=== PATIENT | female | born 1960 | race African-American/Black ===

== ENCOUNTER 2018-05-05 13:49 | Emergency (ER) | payer BC, OTHER ==
--- NOTE | 2018-05-05 13:59 | ER Document Report ---
ED General - General Stated Complaint: POSSIBLE NOSE BLEED Time Seen by Provider: 05/05/18 13:55 Mode of Arrival: Medic Information source: Patient Notes: 57-year-old female who is not on any blood thinners presents with complaints of bleeding that started 3 hours ago. Patient is on meloxicam no other blood thinners denies any trauma. Patient given TXA by EMS TRAVEL OUTSIDE OF THE [place] IN LAST 30 DAYS: No - HPI Onset: Just prior to arrival Onset/Duration: Sudden Quality of pain: Other Severity: Severe Pain Level: Denies Associated symptoms: Other Exacerbated by: Denies Relieved by: Denies Similar symptoms previously: No Recently seen / treated by doctor: No - Related Data Allergies/Adverse Reactions: No Known Allergies Allergy (Verified 02/27/16 15:02) Past Medical History - Social History Smoking Status: Never Smoker Cigarette use (# per day): No Chew tobacco use (# tins/day): No Smoking Education Provided: No Family History: Reviewed & Not Pertinent - Past Medical History Cardiac Medical History: Reports: Hx Hypertension Past Surgical History: Reports: Hx Section Review of Systems - Review of Systems Notes: REVIEW OF SYSTEMS: CONSTITUTIONAL : Denies fever, chills, or sweats. Denies recent illness. EENT: Admits to nosebleed CARDIOVASCULAR: Denies chest pain. Denies palpitations or racing or irregular heart beat. Denies ankle edema. RESPIRATORY: Denies cough, cold, or chest congestion. Denies shortness of breath, difficulty breathing, or wheezing. GASTROINTESTINAL: Denies abdominal pain or distention. Denies nausea, vomiting , or diarrhea. Denies blood in vomitus, stools, or per rectum. Denies black, tarry stools. Denies constipation. GENITOURINARY: Denies difficulty urinating, painful urination, burning, frequency, blood in urine, or discharge. FEMALE GENITOURINARY: Denies vaginal bleeding, heavy or abnormal periods, irregular periods. Denies vaginal discharge or odor. MUSCULOSKELETAL: Denies back or neck pain or stiffness. Denies joint pain or swelling. SKIN: Denies rash, lesions or sores. HEMATOLOGIC : Denies easy bruising or bleeding. LYMPHATIC: Denies swollen, enlarged glands. NEUROLOGICAL: Denies confusion or altered mental status. Denies passing out or loss of consciousness. Denies dizziness or lightheadedness. Denies headache. Denies weakness or paralysis or loss of use of either side. Denies problems with gait or speech. Denies sensory loss, numbness, or tingling. Denies seizures. PSYCHIATRIC: Denies anxiety or stress. Denies depression, suicidal ideation, or homicidal ideation. ALL OTHER SYSTEMS REVIEWED AND NEGATIVE. PHYSICAL EXAMINATION: GENERAL: Well-appearing, well-nourished and in no acute distress. HEAD: Atraumatic, normocephalic. EYES: Pupils equal round and reactive to light, extraocular movements intact, conjunctiva are normal. ENT: Bleeding noted through the right nostril dry blood in the left NECK: Normal range of motion, supple without lymphadenopathy LUNGS: Breath sounds clear to auscultation bilaterally and equal. No wheezes rales or rhonchi. HEART: Regular rate and rhythm without murmurs ABDOMEN: Soft, nontender, nondistended abdomen. No guarding, no rebound. No masses appreciated. Female : deferred Musculoskeletal: Normal range of motion, no pitting or edema. No cyanosis. NEUROLOGICAL: Cranial nerves grossly intact. Normal speech, normal gait. Normal sensory, motor exams PSYCH: Normal mood, normal affect. SKIN: Warm, Dry, normal turgor, no rashes or lesions noted. Dictation was performed using [employer] voice recognition software Physical Exam - Vital signs Vitals: Temp Pulse Resp BP Pulse Ox 98.4 F 100 16 176/87 H 100 05/05/18 14:05/05/18 14:05/05/18 14:05/05/18 14:05/05/18 14:01 Course - Re-evaluation Re-evalutation: 05/05/18 14:02 Patient has history of hypertension is not taking a blood pressure medication 05/05/18 15:14 Rhino Rocket placed with no complications, patient was watched in the emergency department for another hour with no eating, will discharge home with follow-up with ENT antibiotics and close follow-up - Vital Signs Vital signs: Temp Pulse Resp BP Pulse Ox 98.4 F 100 16 176/87 H 100 05/05/18 14:05/05/18 14:05/05/18 14:05/05/18 14:05/05/18 14:01 Discharge - Discharge Clinical Impression: Bleeding nose Condition: Stable Disposition: HOME, SELF-CARE Instructions: Nosebleed Instructions ([facility]) Prescriptions: Cephalexin Monohydrate [Keflex 500 mg Capsule] 500 mg PO Q6H 5 Days capsule Referrals: ANDRÉS STEINBERG DO [ASSOCIATE] - Follow up in 3-5 days
[2018-05-05] MEDS ORDERED: OXYMETAZOLINE HCL 0.05% NASAL SPRAY 15 ML BOTTLE NASL ONE (14:22)
[2018-05-05 15:23] VITALS: BP 167/79
== END 2018-05-05 15:23 | disposition home or self-care (01) ==
LOC: ER 13:49
DX: R04.0 Epistaxis (principal); I10 Essential (primary) hypertension
CPT/HCPCS: 99283; 30901; J3490

== ENCOUNTER 2018-05-08 07:03 | Emergency (ER) | payer SELFPAY ==
[2018-05-08 07:09] VITALS: BP 164/77
--- NOTE | 2018-05-08 08:26 | ER Document Report ---
ED General - General Chief Complaint: Other Stated Complaint: RECHECK NOSE BLEED Time Seen by Provider: 05/08/18 07:48 Mode of Arrival: Ambulatory Information source: Patient Notes: Patient is a 57-year-old female who presents to the ER today for nose packing removal from a nosebleed that she had a Rhino Rocket placed on the of this month. This was placed here in the emergency department due to nosebleed. Patient states that she has had no further bleeding. She has not followed up with ear nose and throat. She states she was told to come back to have it removed. She is not on blood thinners. TRAVEL OUTSIDE OF THE [place] IN LAST 30 DAYS: No - Related Data Allergies/Adverse Reactions: No Known Allergies Allergy (Verified 02/27/16 15:02) Past Medical History - General Information source: Patient - Social History Smoking Status: Unknown if Ever Smoked Family History: Reviewed & Not Pertinent Patient has suicidal ideation: No Patient has homicidal ideation: No - Past Medical History Cardiac Medical History: Reports: Hx Hypertension Renal/ Medical History: Denies: Hx Peritoneal Dialysis Past Surgical History: Reports: Hx Section Review of Systems - Review of Systems Constitutional: No symptoms reported EENT: See HPI Cardiovascular: No symptoms reported Respiratory: No symptoms reported Gastrointestinal: No symptoms reported Genitourinary: No symptoms reported Female Genitourinary: No symptoms reported Musculoskeletal: No symptoms reported Skin: No symptoms reported Hematologic/Lymphatic: No symptoms reported Neurological/Psychological: No symptoms reported Physical Exam - Vital signs Vitals: Temp Pulse Resp BP Pulse Ox 97.7 F 81 18 164/77 H 97 05/08/18 07:08 05/08/18 07:08 05/08/18 07:08 05/08/18 07:08 05/08/18 07:08 - Notes Notes: PHYSICAL EXAMINATION: GENERAL: Well-appearing and in no acute distress. HEAD: Atraumatic, normocephalic. EYES: Pupils equal round and reactive to light, extraocular movements intact, sclera anicteric, conjunctiva are normal. ENT: ear canals without erythema or foreign body, TMs pearly brennan with good bony landmarks, right near with Rhino Rocket in place, no bleeding, oropharynx clear without exudates. Moist mucous membranes. NECK: Normal range of motion, supple without lymphadenopathy LUNGS: CTAB and equal. No wheezes rales or rhonchi. HEART: Regular rate and rhythm without murmurs EXTREMITIES: Normal range of motion, no pitting edema. No cyanosis. NEUROLOGICAL: Cranial nerves grossly intact. Normal sensory/motor exams. PSYCH: Normal mood, normal affect. SKIN: Warm, Dry, normal turgor, no rashes or lesions noted Course - Re-evaluation Re-evalutation: 05/09/18 08:40 Rhino Rocket was removed successfully, patient was watched for approximately an hour afterwards and had no active bleeding. Bacitracin was applied to the naris there was some dried skin and crust. - Vital Signs Vital signs: Temp Pulse Resp BP Pulse Ox 97.7 F 81 18 164/77 H 97 05/08/18 07:08 05/08/18 07:08 05/08/18 07:08 05/08/18 07:08 05/08/18 07:08 Discharge - Discharge Clinical Impression: Encounter for removal of nasal packing Condition: Stable Disposition: HOME, SELF-CARE Additional Instructions: Return immediately for any new or worsening symptoms. Follow up with primary care provider, call tomorrow to make followup appointment.
== END 2018-05-08 08:42 | disposition home or self-care (01) ==
LOC: ER 07:03
DX: Z48.00 Encounter for change or removal of nonsurgical wound dressing (principal); R23.8 Other skin changes; I10 Essential (primary) hypertension
CPT/HCPCS: 99283

== ENCOUNTER 2018-09-16 16:46 | Emergency (ER) | payer SELFPAY ==
[2018-09-16] MEDS ORDERED: DEXAMETHASONE 4 MG TABLET PO ONE (18:47)
[2018-09-16] MEDS ORDERED: KETOROLAC TROMETHAMINE 60 MG/2 ML SDV IM ONE (18:47)
--- NOTE | 2018-09-16 18:49 | ER Document Report ---
ED Neck/Back Problem - General Chief Complaint: Low Back Pain Stated Complaint: LOWER BACK PAIN Time Seen by Provider: 09/16/18 18:21 Mode of Arrival: Ambulatory Notes: 58-year-old female presented to ED for complaint of pain in the back started on Saturday became worse on Saturday and she was told at work that she need to get checked out before she can go back to work. She also has a rash to the right foot it is been there for a while but is gotten worse and is become a little painful when she is working. She states she works at a [employer] and the pain has been bad at work. Vision is alert and oriented respirations regular and unlabored speaking in full sentences walks with even steady gait. TRAVEL OUTSIDE OF THE [place] IN LAST 30 DAYS: No - HPI Patient complains to provider of: Pain, Lower back. No: Injury Onset: Last - Onset: Chronic - With an exacerbation Timing: Still present Quality of pain: Achy Severity: Moderate Pain Level: 2 Recent injury: No Associated symptoms: Like prior neck/back pain, Radiation to leg, Lower back pain, Other - Also has a rash to the right foot the back and the arm. denies: Fever, Incontinence, Motor loss, Numbness/tingling, Radiation to arm, Radiation to chest, Sensory loss, Sweaty, Unable to urinate Exacerbated by: Movement of trunk, Sitting position Relieved by: Nothing Similar symptoms previously: Yes - Related Data Allergies/Adverse Reactions: No Known Allergies Allergy (Verified 02/27/16 15:02) Past Medical History - General Information source: Patient - Social History Smoking Status: Never Smoker Cigarette use (# per day): No Chew tobacco use (# tins/day): No Smoking Education Provided: No Frequency of alcohol use: Social Drug Abuse: Marijuana Occupation: [employer] Lives with: Spouse/Significant other Family History: Reviewed & Not Pertinent Patient has suicidal ideation: No Patient has homicidal ideation: No - Past Medical History Cardiac Medical History: Reports: Hx Hypertension Pulmonary Medical History: Reports: None EENT Medical History: Reports: None Neurological Medical History: Reports: None Endocrine Medical History: Reports: None Renal/ Medical History: Reports: None Malignancy Medical History: Reports: None GI Medical History: Reports: None Musculoskeletal Medical History: Reports Hx Arthritis Skin Medical History: Reports None Psychiatric Medical History: Reports: None Traumatic Medical History: Reports: None Infectious Medical History: Reports: None Past Surgical History: Reports: Hx Section - Immunizations Immunizations up to date: Yes Review of Systems - Review of Systems Notes: REVIEW OF SYSTEMS: CONSTITUTIONAL : Denies fever, chills, or sweats. Denies recent illness. EENT: Denies eye, ear, throat, or mouth pain or symptoms. Denies nasal or sinus congestion or discharge. Denies throat, tongue, or mouth swelling or difficulty swallowing. CARDIOVASCULAR: Denies chest pain. Denies palpitations or racing or irregular heart beat. Denies ankle edema. RESPIRATORY: Denies cough, cold, or chest congestion. Denies shortness of breath, difficulty breathing, or wheezing. GASTROINTESTINAL: Denies abdominal pain or distention. Denies nausea, vomiting , or diarrhea. Denies blood in vomitus, stools, or per rectum. Denies black, tarry stools. Denies constipation. GENITOURINARY: Denies difficulty urinating, painful urination, burning, frequency, blood in urine, or discharge. FEMALE GENITOURINARY: Denies vaginal bleeding, heavy or abnormal periods, irregular periods. Denies vaginal discharge or odor. MUSCULOSKELETAL: Complains of back pain to the lower back radiating across the right buttocks and down the right thigh. She states she has had this in the past just seems worse today. She states that work told her she had to get checked out before she could come back to work. Patient denies any loss of control of bowel or bladder, saddle anesthesia, loss control of the lower extremities or any decreased sensation to the lower extremities. Denies joint pain or swelling. SKIN: Rash to the right foot ankle, she also has a mild rash to the arms HEMATOLOGIC : Denies easy bruising or bleeding. LYMPHATIC: Denies swollen, enlarged glands. NEUROLOGICAL: Denies confusion or altered mental status. Denies passing out or loss of consciousness. Denies dizziness or lightheadedness. Denies headache. Denies weakness or paralysis or loss of use of either side. Denies problems with gait or speech. Denies sensory loss, numbness, or tingling. Denies seizures. PHYSICAL EXAMINATION: GENERAL: Well-appearing, well-nourished and in no acute distress. HEAD: Atraumatic, normocephalic. EYES: Pupils equal round and reactive to light, extraocular movements intact, conjunctiva are normal. ENT: Nares patent, oropharynx clear without exudates. Moist mucous membranes. NECK: Normal range of motion, supple without lymphadenopathy LUNGS: Breath sounds clear to auscultation bilaterally and equal. No wheezes rales or rhonchi. HEART: Regular rate and rhythm without murmurs ABDOMEN: Soft, nontender, nondistended abdomen. No guarding, no rebound. No masses appreciated. Female : deferred Musculoskeletal: Tenderness to lower back bilaterally radiates across the right buttocks and down the right leg normal range of motion, no pitting or edema. No cyanosis. NEUROLOGICAL: Cranial nerves grossly intact. Normal speech, normal gait. Normal sensory, motor exams PSYCH: Normal mood, normal affect. SKIN: Warm, Dry, normal turgor, psoriasis to the right foot left and right arm worse on the right foot PSYCHIATRIC: Denies anxiety or stress. Denies depression, suicidal ideation, or homicidal ideation. ALL OTHER SYSTEMS REVIEWED AND NEGATIVE. Dictation was performed using [employer] voice recognition software Physical Exam - Vital signs Vitals: Temp Pulse Resp BP Pulse Ox 98.5 F 81 18 171/82 H 93 09/16/18 16:52 09/16/18 16:52 09/16/18 16:52 09/16/18 16:52 09/16/18 16:52 Course - Re-evaluation Re-evalutation: 09/17/18 02:42 After performing a Medical Screening Examination, I estimate there is LOW risk for EXPANDING OR RUPTURED ABDOMINAL AORTIC ANEURYSM, CAUDA EQUINA SYNDROME, EPIDURAL MASS LESION, or HERNIATED DISK CAUSING SEVERE SPINAL STENOSIS, thus I consider the discharge disposition reasonable. I have reevaluated this patient multiple times and no significant life threatening changes are noted. The patient and I have discussed the diagnosis and risks, and we agree with discharging home and close follow-up. We also discussed returning to the Emergency Department immediately if new or worsening symptoms occur with the understanding that symptoms and presentations can change. We have discussed the symptoms which are most concerning (e.g., saddle anesthesia, urinary or bowel incontinence or retention, changing or worsening pain) that necessitate immediate return. - Vital Signs Vital signs: Temp Pulse Resp BP Pulse Ox 97.8 F 79 16 162/81 H 98 09/16/18 20:04 09/16/18 20:04 09/16/18 20:04 09/16/18 20:04 09/16/18 20:04 - Diagnostic Test Radiology reviewed: Image reviewed, Reports reviewed Discharge - Discharge Clinical Impression: Psoriasis Low back pain Qualifiers: Chronicity: chronic Back pain laterality: unspecified Sciatica presence: with sciatica Sciatica laterality: sciatica of right side Qualified Code(s): M54.41 - Lumbago with sciatica, right side; G89.29 - Other chronic pain; G89.29 - Other chronic pain Condition: Stable Disposition: HOME, SELF-CARE Instructions: Family Physicians / Practices Additional Instructions: LOW BACK PAIN: Three out of every four people will have an episode of disabling back pain during their lifetime. Most commonly the pain is due to straining of the muscles and ligaments in the low back. Usual treatment includes: (1) Rest on a firm surface. Avoid lying on your stomach. (2) Ice pack the painful area. After a few days, gentle heat may be used intermittently to relax the area, or ice packs can be continued. (3) Medication may be needed -- muscle relaxers and antiinflammatory medicines are commonly used. (4) As the back improves, exercises are prescribed to strengthen the back and abdominal muscles. Your doctor will advise you on the proper care for your back at each stage in your recovery. You may be better in a few days -- or healing may take several weeks. If new symptoms of a "herniated disc" (radiation of pain, numbness, or tingling down the back of the leg or weakness in the leg) occur, you should be re-examined. Further testing may be necessary. STEROID MEDICATION: You have been given a medicine of the cortisone/steroid class. This medication is used to control inflammation or allergy. It is usually only given for a short period of time, until the acute process subsides. There are usually no side effects from short-term use of cortisone-like medications. Some persons feel an increased sense of well-being and are not sleepy at bedtime. Long-term use of cortisone medications is best avoided, unless required for a severe condition. If your condition does not remit, or relapses after the course of corticosteroid medication, you should consult your physician. Toradol Injection You have been given an injection of ketorolac tromethamine (Toradol). This is an excellent, safe drug for pain control. It also has potent antiinflammatory action. You should have significant pain relief within about one hour. Toradol is not addicting and is non-sedating. It does not interfere with driving or work. Call or return if you develop itching, hives, shortness of breath, or rash. Stretching Exercises for the Back The physician has recommended that you begin stretching exercises for your back. These are often used even while the back is painful. However, you should notify the physician if the activities seem to increase your pain. PELVIC TILT: Lie flat on your back with knees bent. Tighten your stomach and buttock muscles so it flattens your lower back against the floor. Hold 10 seconds. Repeat 10 times, twice daily. KNEE RAISE: Lying on the back with knees bent, raise one knee to your chest, then the other. Hold both knees against the chest 10 seconds, then lower one knee at a time. Repeat 10 times, twice daily. PARTIAL TRUNK RAISE: Lie face down, arms at your sides. Keeping your waist on the floor, use your arms raise your chest up. Support yourself on your elbows for 30 seconds. Repeat twice daily, increasing the time to two minutes as you recover. MUSCLE RELAXERS: Muscle relaxing medications are usually prescribed for acute muscle spasm or injury to the neck and back. They are often combined with antiinflammatory pain medication for increased relief. You may stop the muscle relaxer when the pain and stiffness have improved. Start the medication again if spasms recur. Muscle relaxers may cause drowsiness, especially with the first dose. Do not operate machinery or drive while under the effects of the medication. Most muscle relaxers last up to 24 hours. Do not combine the medication with alcohol. ICE PACKS: Apply ice packs frequently against the painful area. Many different schedules are recommended, such as "20 minutes on, 20 minutes off" or "one hour ice, two hours rest." If you need to work, you may need to go longer between ice treatments. You should plan to have the area ice packed AT LEAST one fourth of the time. The ice should be applied over the wrap, tape, or splint, or over a layer of cloth -- not directly against the skin. Some ice bags have a built-in cloth and can be put directly on the skin. WARM PACKS: After approximately two days, apply gentle heat (such as a heating pad or hot water bottle) for about 20 to 30 minutes about every two hours -- at least four times daily. Warmth and elevation will help you make a more rapid recovery , and will ease the pain considerably. Do not use HOT heat, and never apply heat for longer than 30 minutes. The continuous heat can invisibly damage skin and muscles -- even when no burn is seen on the surface. Damaged muscles can make you MORE sore. Is a instructed to the acetaminophen 8-hour arthritis formula taken with ibuprofen in the morning to help your low back pain. Can also use Aspercreme lidocaine cream to the area. Please follow-up with her primary doctor and get a back specialist referral for your back pain. X-ray did show chronic changes to your back but no acute fractures or injuries. He also had some calcified atherosclerotic plaques in your abdominal aorta will need to follow-up with your primary doctor for this. This is a chronic problem. FOLLOW-UP CARE: If you have been referred to a physician for follow-up care, call the physician s office for an appointment as you were instructed or within the next two days. If you experience worsening or a significant change in your symptoms, notify the physician immediately or return to the Emergency Department at any time for re-evaluation. Prescriptions: Cyclobenzaprine HCl [Flexeril 10 mg Tablet] 10 mg PO TIDP PRN #15 tab PRN Reason: Forms: Elevated Blood Pressure, Return to Work
--- NOTE | 2018-09-16 19:15 | RADIOLOGY REPORT (SQ) ---
EXAM DESCRIPTION: L SPINE WHOLE COMPLETED DATE/TIME: 09/16/2018 6:58 pm REASON FOR STUDY: low back pain radiates to right COMPARISON: None. NUMBER OF VIEWS: Five views including obliques. TECHNIQUE: AP, lateral, oblique, and sacral radiographic images acquired of the lumbar spine. LIMITATIONS: None. FINDINGS: MINERALIZATION: Normal. SEGMENTATION: Normal. No transitional anatomy. ALIGNMENT: Normal. VERTEBRAE: Maintained height. No fracture or worrisome bone lesion. DISCS: Multilevel disc space narrowing with osteophytes. POSTERIOR ELEMENTS: Pedicles and facets are intact. No pars defect or posterior arch defects. Facet arthropathy is present. HARDWARE: None in the spine. PARASPINAL SOFT TISSUES: Calcified atherosclerotic plaque localizes to the abdominal aorta. PELVIS: Intact as visualized. No fractures or worrisome bone lesions. SI joints intact. OTHER: No other significant finding. IMPRESSION: SPONDYLOSIS WITHOUT BONE LESION OR FRACTURE. TECHNICAL DOCUMENTATION: JOB ID: [id number] [employer]- All Rights Reserved Reading location - IP/workstation name: [email or web address]
[2018-09-16] MEDS ORDERED: METHOCARBAMOL 500 MG TABLET PO ONE (19:28)
[2018-09-16 20:05] VITALS: BP 162/81
== END 2018-09-16 20:07 | disposition home or self-care (01) ==
LOC: ER 16:46
DX: L40.9 Psoriasis, unspecified (principal); G89.29 Other chronic pain; M54.41 Lumbago with sciatica, right side; I10 Essential (primary) hypertension
CPT/HCPCS: 99283; 72110; J1885

== ENCOUNTER 2019-11-19 09:39 | Emergency (ER) | payer SELFPAY ==
[2019-11-19] MEDS ORDERED: DIPHENHYDRAMINE HCL 50 MG/ML VIAL IV ONE (10:30)
[2019-11-19] MEDS ORDERED: METHYLPREDNISOLONE INJ 125 MG/2 ML SDV IV ONE (10:30)
--- NOTE | 2019-11-19 10:30 | ER Document Report ---
ED Medical Screen (RME) - General Chief Complaint: Rash Stated Complaint: RASH Time Seen by Provider: 11/19/19 10:13 TRAVEL OUTSIDE OF THE [place] IN LAST 30 DAYS: No - HPI Notes: 11/19/19 10:54 59-year-old female to the emergency department with complaints of a rash to her face and to her back into her feet. She states that she was diagnosed with psoriasis to her feet but is gotten progressively worse over the past week. She states she started have a rash to her back and into her face over the past 3 days. 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 Of note she does not use gloves while she is working but there is no rash on her hands. Denies any fevers or chills. She states the rash itches and also stings. I performed a brief medical screening exam on the patient. I determined that she will need further evaluation and management by main side provider. I did consult with Dr. christianson and he came and looked at the rash as well and agreed with the plan for CBC CMP, Benadryl, Solu-Medrol. - Related Data Allergies/Adverse Reactions: No Known Allergies Allergy (Verified 11/19/19 10:11) Past Medical History - Social History Chew tobacco use (# tins/day): No Frequency of alcohol use: Occasional Drug Abuse: None - Past Medical History Cardiac Medical History: Reports: Hx Hypertension Renal/ Medical History: Denies: Hx Peritoneal Dialysis Musculoskeltal Medical History: Reports Hx Arthritis Past Surgical History: Reports: Hx Section - Immunizations Immunizations up to date: Yes Physical Exam - Vital signs Vitals: Temp Pulse Resp BP Pulse Ox 98.1 F 84 16 146/69 H 96 11/19/19 09:46 11/19/19 09:46 11/19/19 09:46 11/19/19 09:46 11/19/19 09:46 Course - Vital Signs Vital signs: Temp Pulse Resp BP Pulse Ox 98.1 F 84 16 146/69 H 96 11/19/19 09:46 11/19/19 09:46 11/19/19 09:46 11/19/19 09:46 11/19/19 09:46 - Laboratory Result Diagrams: 11/19/19 10:43 11/19/19 10:43
[2019-11-19 10:53] LABS: ABSOLUTE EOSINOPHILS # (AUTO) 0.2 10^3/uL (0.0-0.6); ABSOLUTE LYMPHOCYTES (AUTO) 1.6 10^3/uL (0.5-4.7); ABSOLUTE MONOCYTES (AUTO) 0.4 10^3/uL (0.1-1.4); ABSOLUTE NEUT (AUTO) 4.2 10^3/uL (1.7-8.2); BASOPHILS % (AUTO) 0.8 % (0-2); HEMATOCRIT 28.5 % (36.0-47.0); HEMOGLOBIN 9.4 g/dL (12.0-15.5); LYMPHOCYTES % (AUTO) 24.8 % (13-45); MEAN CORPUSCULAR HEMOGLOBIN 26.8 pg (27.0-33.4); MEAN CORPUSCULAR VOLUME 81 fl (80-97); MONOCYTES % (AUTO) 6.4 % (3-13); PLATELET COUNT 133 10^3/uL (150-450); RED BLOOD COUNT 3.51 10^6/uL (3.72-5.28); RED CELL DISTRIBUTION WIDTH 22.2 % (11.5-14.0); TOTAL CELLS COUNTED % (AUTO) 100 %; WHITE BLOOD COUNT 6.4 10^3/uL (4.0-10.5)
[2019-11-19 11:10] LABS: ALBUMIN 3.9 g/dL (3.5-5.0); ALKALINE PHOSPHATASE 184 U/L (38-126); ANION GAP 11 (5-19); ASPARTATE AMINO TRANSFERASE 157 U/L (14-36); BILIRUBIN,DIRECT 0.8 mg/dL (0.0-0.4); BILIRUBIN,TOTAL 1.3 mg/dL (0.2-1.3); BLOOD UREA NITROGEN 9 mg/dL (7-20); CALCIUM 9.1 mg/dL (8.4-10.2); CARBON DIOXIDE 29 mmol/L (22-30); CHLORIDE 104 mmol/L (98-107); GLUCOSE 113 mg/dL (75-110); POTASSIUM 3.5 mmol/L (3.6-5.0); TOTAL PROTEIN 8.8 g/dL (6.3-8.2)
--- NOTE | 2019-11-19 15:54 | ER Document Report ---
ED Skin Rash/Insect Bite/Abscs - General Chief Complaint: Rash Stated Complaint: RASH Time Seen by Provider: 11/19/19 10:13 Primary Care Provider: ANGELES DUCKWORTH MD [ACTIVE STAFF] - Follow up as needed Notes: Patient is a 59-year-old female who presents emergency department with a chief complaint of rash. Patient reports she has known psoriasis to her feet. Patient reports over the past 3 days the psoriasis to bilateral feet has gotten worse. She reports pustules and worsening pain to her feet. Patient reports she is also noticed the same type of rash to her right lower extremity, right buttocks, torso and face. Patient reports that she is not hurting but that this is extremely itchy. Patient denies fever. Patient denies history of diabetes. Patient reports she does not currently take anything besides [id number] lotions for her psoriasis. Patient reports she does not have a plug making operator that she follows closely for this. TRAVEL OUTSIDE OF THE [place] IN LAST 30 DAYS: No - Related Data Allergies/Adverse Reactions: No Known Allergies Allergy (Verified 11/19/19 10:11) Past Medical History - General Information source: Patient - Social History Smoking Status: Former Smoker Chew tobacco use (# tins/day): No Frequency of alcohol use: Occasional Drug Abuse: None Lives with: Spouse/Significant other Family History: Reviewed & Not Pertinent Patient has suicidal ideation: No Patient has homicidal ideation: No - Past Medical History Cardiac Medical History: Reports: Hx Hypertension Pulmonary Medical History: Reports: None EENT Medical History: Reports: None Neurological Medical History: Reports: None Endocrine Medical History: Reports: None Renal/ Medical History: Reports: None. Denies: Hx Peritoneal Dialysis Malignancy Medical History: Reports: None GI Medical History: Reports: None Musculoskeletal Medical History: Reports Hx Arthritis Skin Medical History: Reports None Psychiatric Medical History: Reports: None Traumatic Medical History: Reports: None Infectious Medical History: Reports: None Past Surgical History: Reports: Hx Section - Immunizations Immunizations up to date: Yes Review of Systems - Review of Systems Constitutional: No symptoms reported EENT: No symptoms reported Cardiovascular: No symptoms reported Respiratory: No symptoms reported Gastrointestinal: No symptoms reported Genitourinary: No symptoms reported Female Genitourinary: No symptoms reported Musculoskeletal: No symptoms reported Skin: See HPI Hematologic/Lymphatic: No symptoms reported Neurological/Psychological: No symptoms reported Physical Exam - Vital signs Vitals: Temp Pulse Resp BP Pulse Ox 98.1 F 84 16 146/69 H 96 11/19/19 09:46 11/19/19 09:46 11/19/19 09:46 11/19/19 09:46 11/19/19 09:46 - Notes Notes: GENERAL: Well-appearing, well-nourished and in no acute distress. HEAD: Atraumatic, normocephalic. EYES: Pupils equal round and reactive to light, extraocular movements intact, sclera anicteric, conjunctiva are normal. ENT: Nares patent, oropharynx clear without exudates. Moist mucous membranes. NECK: Normal range of motion, supple without lymphadenopathy or JVD. LUNGS: Breath sounds clear to auscultation bilaterally and equal. No wheezes rales or rhonchi. HEART: Regular rate and rhythm without murmurs, rubs or gallops. ABDOMEN: Soft, nontender, normoactive bowel sounds. No guarding, no rebound. No masses appreciated. BACK: No cervical, thoracic, lumbar midline tenderness. No saddle anesthesia, normal distal neurovascular exam. GENITOURINARY: Deferred. EXTREMITIES: Normal range of motion, no pitting or edema. No clubbing or cyanosis. NEUROLOGICAL: Cranial nerves II through XII grossly intact. Normal speech, normal gait. PSYCH: Normal mood, normal affect. SKIN: Patient has widespread eruption of pustules to bilateral feet, some areas of erythematous plaques are oozing a small amount of blood pt. has scattered erythematous plaques to right lower extremity, right buttocks, torso, and face. The plaques do not interfere with eyes. Course - Re-evaluation Re-evalutation: 11/19/19 15:48 I did page [facility] for consult with dermatology, I did discuss the case with Dr. Christiansen who did see the patient in triage and states the patient has a severe case of what appears to be pustular psoriasis. Patient reports she has had psoriasis to her feet for a long period of time but over the past 3 days it significantly gotten worse and now spread up to her legs, back, buttocks and to the entire face. Patient reports the Solu-Medrol and Benadryl did help subside her itching and discomfort. 11/19/19 16:04 [facility] called back to report they do not have dermatology publication distributor. Will contact [facility]. 11/19/19 16:06 Called [facility] for consult. Reported they do not dermatology. 11/19/2019 16:08 Called [facility] for consult. Reported they do not have dermatology for consult either. 11/19/2019 16:14 Called [facility] for consult. 11/19/19 16:43 I did speak with a plug making operator at [facility] and stated that the patient appeared to have generalized pustular psoriasis. She did inform me that the patient needs to follow-up with dermatology closely but does recommend clobetasol ointment to her body for the next 2 weeks as well as triamcinolone 454 to her face for the next 2 weeks. She states do not give oral steroids as this can make her symptoms worse. I did discuss this with the patient. Patient verbalizes understanding. Patient reports she does go to Dr. Duckworth and will call him tomorrow to reestablish care she has not been to him in over 1 year. I will give her multiple dermatology referrals so she can go ahead and call and make an appointment. I did inform her to return if she were to develop any new or worsening symptoms such as sloughing of skin, fever, worsening of the rash, involvement of the eyes, or any new or worsening symptoms. - Vital Signs Vital signs: Temp Pulse Resp BP Pulse Ox 98.8 F 78 16 153/72 H 99 11/19/19 17:22 11/19/19 17:22 11/19/19 17:22 11/19/19 17:22 11/19/19 17:22 - Laboratory Result Diagrams: 11/19/19 10:43 11/19/19 10:43 Laboratory results interpreted by me: 11/19/19 11/19/19 10:43 10:43 RBC 3.51 L Hgb 9.4 L Hct 28.5 L MCH 26.8 L RDW 22.2 H Plt Count 133 L Potassium 3.5 L Glucose 113 H Direct Bilirubin 0.8 H AST 157 H Alkaline Phosphatase 184 H Total Protein 8.8 H Discharge - Discharge Clinical Impression: Generalized pustular psoriasis Condition: Stable Disposition: HOME, SELF-CARE Additional Instructions: Today was seen in the emergency department for a rash. It does appear that you have pustular psoriasis or symptoms that are consistent with this diagnosis. Ultimately you do need to follow-up with dermatology. I provided you with multiple referrals here in the area. Please contact your primary care provider Dr. Duckworth to reestablish care as you have not seen him in 1 year. I did speak with the plug making operator at [facility] who did recommend a clobetasol ointment to be placed on the rash over the next 2 weeks to your body. Do not use clobetasol to the face. She also recommends using her triamcinolone cream to your face for the next 2 weeks. Please return emergency department if you develop a fever, rash that starts to involve the eyes, signs of infection to the rash such as redness, erythema or significant foul-smelling discharge or any new or worsening symptoms. Psoriasis You have psoriasis. This is a common disease, but the cause is unknown. Psoriasis often runs in families. The skin blemishes are usually red with a thick, silvery scale. It is most commonly seen over the knees, elbows, and scalp. The nails may become thickened or pitted. Psoriasis is treated with cortisone cream. You can wrap the area with plastic wrap overnight to increase the effectiveness of the cream. Tar preparations may be used on non-hairy areas. Medicated shampoos are often prescribed. Management by a plug making operator is advised. Prescriptions: Clobetasol Propionate [Temovate 0.05% Ointment 15 gm] 28 applic TP BID 14 Days #1 tube Triamcinolone Acetonide [Triderm] 454 gm TP BID #14 cream..g. Forms: Return to Work Referrals: ANGELES DUCKWORTH MD [ACTIVE STAFF] - Follow up as needed
[2019-11-19 17:25] VITALS: BP 153/72
== END 2019-11-19 17:22 | disposition home or self-care (01) ==
LOC: ER 09:39
DX: L40.1 Generalized pustular psoriasis (principal)
CPT/HCPCS: 99283; 96374; 96375; 36415; 85025; 80053; J1200; J2930